=== PATIENT | male | born 1990 | race Caucasian/White ===

== ENCOUNTER 2017-06-20 11:59 | Day surgery (SDC) | payer OTHER ==
[~2017-06-20 11:59] MED LIST: ACETAMINOPHEN 1,000 MG/100 ML BTL IV ONE; CEFAZOLIN 2 Gram 2 GM/50 ML BAG IVPB ONE
[2017-06-20] MEDS ORDERED: MIDAZOLAM HCL 2MG/2ML VIAL IV ONE (12:00)
[2017-06-20] MEDS ORDERED: BUPIVACAINE 0.75% W/EPI MPF 30ML VIAL IVP ONE (12:00)
[2017-06-20] MEDS ORDERED: SEVOFLURANE 250 ML INH ONE (12:00)
[2017-06-20] MEDS ORDERED: LIDOCAINE 2% MDV (20MG/ML) 20ML VIAL IV ONE (12:00)
[2017-06-20] MEDS ORDERED: METHYLPREDNISOLONE 40MG/VIAL IM ONE (12:00)
[2017-06-20] MEDS ORDERED: MORPHINE SULFATE PF 10MG/10ML VIAL IV ONE (12:00)
[2017-06-20] MEDS ORDERED: FENTANYL PF 100MCG/2ML VIAL IV ONE (12:00)
[2017-06-20] MEDS ORDERED: KETOROLAC 30 MG/ML VIAL IVP ONE (12:00)
[2017-06-20] MEDS ORDERED: ONDANSETRON HCL IV 4 MG/2 ML VIAL IVP ONE (12:00)
[2017-06-20] MEDS ORDERED: PROPOFOL 10 MG/ML VIAL IV ONE (12:00)
--- NOTE | 2017-06-20 21:08 | Operative Note ---
DATE: 06/20/2017 PREOPERATIVE DIAGNOSIS: LATERAL DISLOCATION OF RIGHT PATELLA. QUESTION OSTEOCHONDRAL LESION. POSTOPERATIVE DIAGNOSES: LATERAL DISLOCATION RIGHT PATELLA WITH A CHONDRAL LESION IN THE MEDIAL GUTTER. PROCEDURE: RIGHT KNEE ARTHROSCOPY WITH INTERARTICULAR DEBRIDEMENT WITH REMOVAL OF CHONDRAL LOOSE BODY. STAFF SURGEON: JACKY CADENA M.D. ANESTHESIA: GENERAL. PREPARATION: CHLORAPREP. INDIVIDUAL CONSIDERATIONS: NONE. PROCEDURE: The patient was taken to the Operating Room and placed supine on the operating table. He had a successful induction with general anesthetic. His right lower extremity was prepped and draped in the usual fashion. The patient had a superior lateral inflow cannula placed. The skin was infiltrated with 0.75% Marcaine prior. A stab wound was made and an inflow cannula was placed and a large bloody effusion was drained. The knee was inflated with normal saline. An inferior medial and an inferior lateral portal were made in similar fashion. The arthroscope was introduced through the inferior lateral portal up in the pouch. The patellofemoral compartment showed lateral subluxation of the patella, obvious medial retinaculum tear. 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 The notch was okay. Medial compartment structures were normal. ACL and PCL were normal. Lateral compartment structures were normal. In the lateral gutter, there was an osteochondral piece, mainly chondral piece, measuring a little over 1.5 cm. This was debrided out with a shaver. There was obviously defect up near the medial border of the patella but not interarticular. There was chondral damage, which looked more like chondromalacia but the piece was actually non- articulating with the notch but interarticular. This was medial. After irrigation, the portals were closed with judah and 20 mL of 0.25% plain Marcaine along with 4 mg of Morphine and 40 mg of DepoMedrol were injected into the knee and a sterile Bulkee compressive dressing was applied. The patient tolerated the procedure well. Needle and sponge counts were correct. Estimated blood loss was minimal and he was taken back to Recovery in good condition. There were no complications. cc: Dr. Luis Pearson JOB NUMBER: [id number] MTDD
== END 2017-06-20 16:15 | disposition home or self-care (01) ==
LOC: SUR 11:59
PROVIDERS: ATTEND Orthopaedic Surgery
DX: M23.41 Loose body in knee, right knee (principal)
CPT/HCPCS: 29874; 01400; J1885; J2405; J3010; J0690; J3490; J1030